=== PATIENT | male | born 1980 | race Two or more races ===

== ENCOUNTER 2018-04-05 15:57 | Emergency (ER) | payer BC, MEDICAID ==
[~2018-04-05] VITALS: Ht 180.3 cm; Wt 88.5 kg
[~2018-04-05 15:57] MED LIST: CEPH-37; IBUP800T24
[2018-04-05 16:11] VITALS: BP 120/82
[2018-04-05] MEDS ORDERED: TETANUS-DIPTH-ACEL PERTUSSIS 0.5ML SYRG IM ONE (18:30)
== END 2018-04-05 18:33 | disposition home or self-care (01) ==
LOC: ER 15:57
DX: S61.012A Laceration without foreign body of left thumb without damage to nail, initial encounter (principal); W26.9XXA Contact with unspecified sharp object(s), initial encounter; Y93.89 Activity, other specified; Y99.8 Other external cause status; Y92.89 Other specified places as the place of occurrence of the external cause
CPT/HCPCS: 12002; 90471; 90715